=== PATIENT | female | born 1980 | race Caucasian/White ===

== ENCOUNTER 2019-05-10 19:45 | Inpatient (IN) | payer OTHER ==
[~2019-05-10] VITALS: Ht 157.5 cm; Wt 65.8 kg
--- NOTE | 2019-05-10 20:13 | NUR ---
PT. PRESENTS TO THE ER WITH 51/50 HOLD PLACED BY PD, PER FIRE & [facility], PT. WAS WALKING ON THE STREET COMPLETELY NAKED, PT. REFUSING TO ANSWER QUESTIONS, REFUSING TO GIVE NAME, WHEN ASKED, SHE STS, "I DONT KNOW." WHEN ASKED QUESTIONS, PT STS,"I DO NOT WANT TO ANSWER ANY QUESTIONS, I JUST WANT TO SLEEP." PT. CURRENTLY LAYING IN BED, SAD, INTERMITTENT CRYING, BELONGINGS REMOVED, COOPERATIVE, PT. PROVIDED A URINE SAMPLE, WALKED TO RESTROOM WITH STEADY GAIT, IN VIEW OF STAFF, SAFETY PRECAUTIONS IN PLACE, WILL CONTINUE TO MONITOR, DR. TRAMMELL AT BEDSIDE WITH MSE
[2019-05-10 21:01] LABS: BASOPHIL % 0.5 % (0-2); PLATELET COUNT 212 x10^3mcL (130-400); RED CELL DISTRIBUTION WIDTH 13.4 % (11.5-14.5)
[2019-05-10 21:02] LABS: CHLORIDE SERUM 102 mmol/L (98-107); CREATININE SERUM 0.7 mg/dL (0.6-1.0); GFR1 > 60 mL/min; GLUCOSE SERUM 96 mg/dL (74-106); POTASSIUM SERUM 3.3 mmol/L (3.5-5.1); SODIUM SERUM 136 mmol/L (136-145)
[2019-05-10 21:07] LABS: ALBUMIN 3.9 g/dL (3.4-5.0); ALKALINE PHOSPHATASE 65 U/L (46-116); ALT/SGPT 44 U/L (14-59); AST/SGOT 34 U/L (15-37); BILIRUBIN TOTAL 0.41 mg/dL (0.20-1.00); TOTAL PROTEIN, SERUM 7.4 g/dL (6.4-8.2)
--- NOTE | 2019-05-10 21:17 | NUR ---
PT. AMBULATED TO THE RESTROOM WITH STEADY GAIT, ACCOMPANIED BY RN
[2019-05-10 21:34] LABS: microscopic required? NO
--- NOTE | 2019-05-10 21:34 | NUR ---
PT NOTED WITH BUTTOCK EXPOSED, ATTEMPTED TO COVER PT WITH WARM BLANKET AND PT REFUSED. INFORMED PT SHE IS EXPOSED AND PT GAVE UNDERSATNDING AND COVERED SELF WITH GOWN.
[2019-05-10 21:45] LABS: urine erythrocyte NEGATIVE (NEGATIVE)
[2019-05-10 21:56] LABS: AMPHETAMINE QUAL UR NONE DETECTED (See below)
--- NOTE | 2019-05-10 22:15 | NUR ---
PT. VERBALLIZED NO ALLERGIES TO MEDICATION, ALLERGIES UPDATED
--- NOTE | 2019-05-10 22:21 | NUR ---
MEDICATED PT PER MD ORDER, PT TOLERATED WELL, SEE EMAR
--- NOTE | 2019-05-10 22:24 | NUR ---
PT. LAYING IN BED, AAOX4, CRYING, STS, "I AM SORRY." STOPPED CRYING, DENIES SI & SI, REPOSITIONED FOR COMFORT, INSTRUCTED TO VERBALIZE FEELINGS, PT. REFUSED, IN VIEW OF STAFF, OFFERED TOILETING, SNACKS & FLUIDS, WILL MONITOR, SAFETY PRECAUTIONS IN PLACE.
--- NOTE | 2019-05-10 23:05 | NUR ---
PT. STS SHE CAME FROM [facility] WHEN SHE RETURNED FROM [place], THEN DID NOT SPEAK ANYMORE AFTER THAT
--- NOTE | 2019-05-10 23:11 | NUR ---
DR. DIAZ AT BEDSIDE
--- NOTE | 2019-05-10 23:15 | NUR ---
PT. STS SHE HAS BEEN A MENTAL FACILITY BEFORE, PT. STS SHE USE TO USE METH, SHE LIVES WITH FATHER, STS SHE WANTED TO TAKE OFF HER CLOTHES AND WALK NAKED FOR NO REASON, PT. STS HER NAME IS CAITLYN COLÓN, DR. DIAZ MADE AWARE, ADMITTING MADE AWARE
--- NOTE | 2019-05-10 23:17 | NUR ---
PT. LAYING IN BED, AAOX4, CALM, COOPERATIVE, MOMENTS AT INTERMITTENT CRYING, CONTACTED FATHER GLADYS, FATHER STATES THEY GOT INTO AN ARGUMENT AND PT. THEN LEFT, DR. DIAZ MADE AWARE, SCRATCHES NOTED ON RIGHT ARM, BRUISE NOTED ON RIGHT HAND, PT. STS THE BRUISING IS FROM AN IV, AND SHE SCRATCHES HERSELF, IN VIEW OF STAFF, OFFERED TOILETING, FLUIDS, SNACKS, PT. DENIES SI & HI, SAFETY PRECAUTIONS IN PLACE, WILL MONITOR.
--- NOTE | 2019-05-10 23:25 | NUR ---
TELE PSYCH COMPUTER PLACED IN PT RM IN VIEW OF PT
--- NOTE | 2019-05-10 23:34 | NUR ---
PT. WITH TELE PSYCH AT BEDSIDE
--- NOTE | 2019-05-11 01:26 | NUR ---
PT. LAYING IN BED, SLEEPING, AROUSABLE TO TOUCH, CALM, COOOPERATIVE, DENIES SI & HI AT THIS TIME, OFFERED FLUIDS, SNACKS, TOILETING, IN VIEW OF STAFF, SAFETY PRECAUTIONS IN PLACE, VSS, WILL MONITOR
--- NOTE | 2019-05-11 03:15 | NUR ---
PT. LAYING IN BED, RESTING, AROUSABLE TO TOUCH, NO ACUTE DISTRESS NOTED, CALM, COOPERATIVE, OFFERED SNACKS, FLUIDS, & TOILETING, DENIES SI & HI, IN VIEW OF STAFF, SAFETY PRECAUTIONS IN PLACE, VSS, WILL MONITOR.
--- NOTE | 2019-05-11 03:21 | NUR ---
BREAKFAST TRAY ORDERED
--- NOTE | 2019-05-11 05:37 | NUR ---
PT. LAYING IN BED, SLEEPING, AROUSABLE TO TOUCH, NO ACUTE DISTRESS NOTED AT THIS TIME, VSS, WILL MONITOR.
--- NOTE | 2019-05-11 07:12 | NUR ---
REPORT GIVEN TO MCKAY BASURTO
--- NOTE | 2019-05-11 07:12 | NUR ---
RECIEVED REPORT FROM SHERINE CARDENAS FOR CONTINUED CARE OF PATIENT.
--- NOTE | 2019-05-11 07:17 | NUR ---
[facility] continuing to look for placement for this pt. No openings overnight per nightshift. Packet has been faxed/ is on file with the following facilities: [facility], [facility], [facility]
--- NOTE | 2019-05-11 07:29 | NUR ---
INTRODUCED SELF TO PATIET. PT SLEEPING AT THE OPPOSITE END OF THE GURNEY WHEN I APPROACHED. PT FRIENDLY AND COOPERATIVE. PT DENIES SI/HI. I OFFERED PATIENT BREAKFAST BUT SHE STS "IM NOT HUNGRY AT THIS TIME". LEFT TRAY IN ROOM. PT HAD NO OTHER NEEDS AT THIS TIME. WILL CONTINUE TO MONITOR.
--- NOTE | 2019-05-11 08:29 | NUR ---
PATIENT SLEEPING UPSIDE DOWN ON GURNEY- NO SS OF DISTRESS NOTED. WILL CONTINUE TO MONITOR.
--- NOTE | 2019-05-11 09:49 | NUR ---
FATHER CALLED CHECKING THE STATUS OF PATIENT. FATHER WAS ON THE EMERGENCY CALL LIST. ADVISED DAD I WOULD CALL HIM SOON I HAD DC INSTRUCTIONS. FATHER DOESN'T DRIVE AND WILL NEED TO FACILITATE SOMEONE TO BRING HIM HERE IF NEEDED.
--- NOTE | 2019-05-11 10:46 | NUR ---
LUNCH TRAY ORDERED FOR PATIENT. PATIENT SLEEPING ON GURNEY- BREATHING E/U, NO SS OF DISTRESS NOTED. WILL CONTINUE TO MONITOR.
--- NOTE | 2019-05-11 11:36 | NUR ---
PATIENT AWAKE, UP ON GURNEY- DENIES ANY DISCOMFORT. OFFERED TO TAKE TO BATHROOM, REFUSED. OFFERED SOMETHING TO EAT, REFUSED. WILL CONTINUE TO MONITOR.
--- NOTE | 2019-05-11 12:30 | NUR ---
PATIENT LYING ON GURNEY- IN A POSITION OF COMFORT. BREATHING E/U, WILL CONTINUE TO MONITOR./
--- NOTE | 2019-05-11 13:54 | NUR ---
OFFERED PATIENT LUNCH, PATIENT REFUSED. STATING "IM WORRIED ABOUT MY DAD, I WILL EAT WHEN I LEAVE HERE". I ADVISED THAT SHE MAY BE HERE A FEW DAYS AND PT STS "IM MY DADS CAREGIVER, HE WON'T EAT IF I'M NOT THERE". I CALLED FATHER "GLADYS" AND HE ADVISED ME THAT YES, DAUGHTER TAKES CARE OF HIM AND HE HAS NO WAY TO GET FOOD BECAUSE HE IS DISABLED. HE STS "I NEED MY DAUGHTER". I ADVISED CHARGE NURSE BERYL OF THE SITUATION AND BERYL CONTACTED CASE MANAGEMENT. CASE MANAGMENT HAD JOSEFA FROM [employer] CALL ME. JOSEFA STATED THAT SHE WOULD BE CALLING PD TO DO WELFARE CHECK ON FATHER.
--- NOTE | 2019-05-11 14:10 | NUR ---
RECEIVED PT FROM ED VIA [facility], PT IS AAOX4. DENIES HEADACHE/DIZZINESS. NO SOB NOTED, LUNG SOUNDS CTA. DENIES CHEST PAIN/PRESSURE. DENIES ABDOMINAL DISCOMFORT. BOWEL SOUNDS ACTIVE. LAST BM=2 DAYS AGO. ABDOMEN IS SOFT. VOIDS. PT STATED THAT 2 DAYS AGO, SHE WANTED TO HURT HERSELF BY BEING MEAN. DENIES SUICIDAL IDEATION AT THIS TIME. NO HALLUCINATIONS/DELUSIONS NOTED. CALM AND COOPERATIVE TO CARE. SIDE RAILS UPX2. CALL LIGHT ON REACH. SITTER AT BEDSIDE. ENDORSED TO PRIMARY NURSE UNIQUE FOR CONTINUITY OF CARE
[2019-05-11 14:17] VITALS: BP 144/93
[2019-05-11 14:21] VITALS: Ht 157.5 cm; Wt 65.8 kg
--- NOTE | 2019-05-11 17:45 | NUR ---
PT IN BED HAVING DINNER, AOX3, RESP E/U ON RA. CALM AND COOPERATIVE W/ CARE AT THIS TIME W/ NO THOUGHTS OF SELF HARM. PT W/ NO IV ACCESS, DR. GARCIA MADE AWARE. [address], SITTER AT BEDSIDE. WILL ENDORSE TO ONCOMING NURSE.
[2019-05-11] MEDS ORDERED: ZYP5 PO (18:05)
[2019-05-11 18:19] VITALS: BP 100/58
[2019-05-11 19:28] VITALS: BP 103/61
--- NOTE | 2019-05-11 20:10 | NUR ---
PT CURRENTLY RESTING IN BED, NO ACUTE DISTRESS. A/O X4. NO TELE, MED/SURG. DENIES CHEST PAIN. PULSES PALPABLE IN ALL EXTREMITIES, NO EDEMA NOTED. LUNG SOUNDS CTA BILATERALLY, DENIES SOB. BOWEL SOUNDS ACTIVE, LAST BM 05/09/19. VOIDING WELL. AMBULATORY. SKIN INTACT. DENIES SUICIDAL IDEATION AT THIS TIME. PT STATES SHE IS HERE BECAUSE SHE WAS BAD. BED IN LOWEST POSITION, SIDE RAILS UP X2, CALL LIGHT WITHIN REACH, SITTER AT BEDSIDE. WILL CONTINUE TO MONITOR.
--- NOTE | 2019-05-11 23:47 | NUR ---
PT CURRENTLY RESTING IN BED, NO ACUTE DISTRESS. WILL CONTINUE TO MONITOR.
--- NOTE | 2019-05-12 02:22 | NUR ---
Follow up calls were made to contracted [facility] facilities regarding bed placement, still no beds available at this time. [facility], spoke with Sofia. [facility], spoke with Laura. [facility], spokew esther Cadet. [facility], spoke with Yolande. [facility], spoke with Chichi. [facility], spoke with Jose. [facility], spoke with Maya.
[2019-05-12 04:40] VITALS: BP 110/62
--- NOTE | 2019-05-12 06:07 | NUR ---
PT SLEPT PERIODICALLY THROUGHOUT NIGHT, NO ACUTE DISTRESS. ALL NEEDS MET AND ATTENDED TO. NO SIGNIFICANT CHANGES. BED IN LOWEST POSITION, SIDE RAILS UP X2, CALL LIGHT WITHIN REACH, SITTER AT BEDSIDE. WILL ENDORSE CARE TO ONCOMING NURSE.
[2019-05-12 06:37] LABS: BASOPHIL % 0.8 % (0-2); PLATELET COUNT 251 x10^3mcL (130-400); RED CELL DISTRIBUTION WIDTH 13.4 % (11.5-14.5)
[2019-05-12 07:22] LABS: CALCIUM 8.5 mg/dL (8.5-10.1); CARBON DIOXIDE 27.5 mmol/L (21-32); CHLORIDE SERUM 105 mmol/L (98-107); CREATININE SERUM 0.8 mg/dL (0.6-1.0); GFR1 > 60 mL/min; GLUCOSE SERUM 97 mg/dL (74-106); MAGNESIUM 2.2 mg/dL (1.8-2.4); POTASSIUM SERUM 4.1 mmol/L (3.5-5.1); SODIUM SERUM 141 mmol/L (136-145)
--- NOTE | 2019-05-12 07:43 | NUR ---
PT SITTING IN BED A/A. ORIENTED X 3 TO PERSON, PLACE, TIME. PT DENIES SI/ OR THOUGHTS OF HARMING OTHERS AT THIS TIME. NO IV ACCESS. NO ACUTE PAIN/ DISTRESS. BED IN LOW POSITION, CALL LIGHT IN REACH, SAFETY PRECAUTIONS IN PLACE, SITTER AT BED SIDE. WILL CONTINUE TO MONITOR
[2019-05-12 07:45] VITALS: BP 100/68
--- NOTE | 2019-05-12 12:35 | NUR ---
PT LYING IN BED A/A. BREATHING EQUAL/ UNLABORED ON RA. NO ACUTE PAIN DISTRESS. NO IV ACCESS. DENIES SI/ THOUGHTS OF HARMING OTHERS AT THIS TIME. BED IN LOW POSITION, CALL LIGHT IN REACH, SAFETY PRECAUTIONS IN PLACE, SITTER AT BED SIDE. WILL CONTINUE TO MONITOR
--- NOTE | 2019-05-12 15:51 | NUR ---
PT LYING IN BED A/A. BREATHING EQUAL/ UNLABORED ON RA. NO ACUTE DISTRESS NOTED. NO IV ACCESS. BED IN LOW POSITION, CALL LIGHT IN REACH, SAFETY PRECAUTIONS IN PLACE, SITTER AT BED SIDE. WILL CONTINUE TO MONITOR
[2019-05-12 16:49] VITALS: BP 104/65
--- NOTE | 2019-05-12 18:32 | NUR ---
PT LYING IN BED A/A. BREATHING EQUAL/ UNLABORED ON RA. IVF RUNNING AT 80 ML/HR. NO REDNESS/SWELLING TO IV SITE. NO ACUTE PAIN/ DISTRESS AT THIS TIME. BANDAGE TO R. LABIA IS CDI. BED IN LOW POSITION, CALL LIGHT IN REACH, SAFETY PRECAUTIONS IN PLACE. WILL ENDORSE TO ON COMING NURSE
--- NOTE | 2019-05-12 18:38 | NUR ---
PT SITTING IN BED EATING. BREATHING EQUAL/ UNLABORED ON RA. NO ACUTE PAIN/ DISTRESS. DENIES SI/ THOUGHTS OF HURTING OTHERS AT THIS TIME. NO IV ACCESS. BED IN LOW POSITION, CALL LIGHT IN REACH, SAFETY PRECAUTIONS IN PLACE, AND SITTE AT BED SIDE. WILL ENDORSE TO ON COMING NURSE
--- NOTE | 2019-05-12 19:37 | NUR ---
PT CURRENTLY RESTING IN BED, NO ACUTE DISTRESS. A/O X4. NO TELE, MED/SURG. DENIES CHEST PAIN. PULSES PALPABLE IN ALL EXTREMITIES, NO EDEMA NOTED. LUNG SOUNDS CTA BILATERALLY, DENIES SOB. BOWEL SOUNDS ACTIVE, LAST BM 05/09/19. VOIDING WELL. AMBULATORY. SKIN INTACT. DENIES PAIN AT THIS TIME. DENIES SUICIDAL IDEATION AT THIS TIME. BED IN LOWEST POSITION, SIDE RAILS UP X2, CALL LIGHT WITHIN REACH. SITTER AT BEDSIDE. WILL CONTINUE TO MONITOR.
[2019-05-12 20:44] VITALS: BP 104/67
[2019-05-13 05:42] VITALS: BP 102/63
--- NOTE | 2019-05-13 05:59 | NUR ---
PT SLEPT PERIODICALLY THROUGHOUT NIGHT, NO ACUTE DISTRESS. ALL NEEDS MET AND ATTENDED TO. NO SIGNIFICANT CHANGES. NO IV ACCESS AT THIS TIME. MEDICATED PAIN PER EMAR. BED IN LOWEST POSITION, SIDE RAILS UP X2, CALL LIGHT WITHIN REACH. WILL ENDORSE CARE TO ONCOMING NURSE.
--- NOTE | 2019-05-13 07:16 | NUR ---
PT LYING IN BED EYES CLOSED. PT AROUSABLE TO VOICE. BREATHING EQUAL/ UNLABORED ON RA. NO ACUTE PAIN/ DISTRESS. NO IV ACCESS. BED IN LOW POSITION, CALL LIGHT IN REACH, SAFETY PRECAUTIONS IN PLACE, SITTER AT BED SIDE. WILL CONTINUE TO MONITOR
[2019-05-13 09:30] VITALS: BP 100/360
--- NOTE | 2019-05-13 12:51 | NUR ---
Still no beds available at the following facilities [facility] Jenny LUCIO
--- NOTE | 2019-05-13 13:10 | NUR ---
PT LYING IN BED A/A. BREATHING EQUAL/ UNLABORED ON RA. NO IV ACCESS. NO ACUTE PAIN/ DISTRESS. BED IN LOW POSITION, CALL LIGHT IN REACH, SAFETY PRECAUTIONS IN PLACE, SITTER AT BED SIDE. WILL CONTINUE TO MONITOR
--- NOTE | 2019-05-13 14:13 | NUR ---
RECEIVED CALL FROM [facility], THEY HAVE A BED AVAILABLE. DR. ENGLE NOTIFIED AND AGREED TO SEND PT TO [facility] AND RENEWED THE 5150 HOLD. WILL CONTACT REGARDING TRANSPORTATION
--- NOTE | 2019-05-13 14:33 | NUR ---
CALLED [facility] TO SET-UP A TRANSPORT, TRANSPORT TIME AT 1630H. PRIMARY NURSE KALANI MADE AWARE
--- NOTE | 2019-05-13 14:45 | NUR ---
[facility] AND GAVE REPORT TO SIMI BASURTO. PT WILL BE TRANSPORTED BY [facility] TO UNIT [address] WYATT, HE IS AWARE OF TRANSPORT. WILL CONTINUE TO MONITOR PT
--- NOTE | 2019-05-13 16:40 | NUR ---
PT DC'D TO [facility]. PT A/A, ORIENTED X 4. BREATHING EQUAL/ UNLABORED ON RA. NO ACUTE DISTRESS/ PAIN. DISCHARGE INSTRUCTIONS EXPLAINED, PT VERBALIZED UNDERSTANDING. PT BROUGHT DOWN TO LOBBY BY JOCY, ACCOMPANIED BY NATASHA. ALL QUESTIONS/ CONCERNS ADDRESSED. ALL BELONGINGS WITH PT
== END 2019-05-13 16:38 | DRG 753 ==
LOC: ED 19:45 → MU 05-11 12:49
PROVIDERS: Emergency Medicine; ADMIT Internal Medicine Pulmonary Disease
DX: F31.10 Bipolar disorder, current episode manic without psychotic features, unspecified (principal); E87.6 Hypokalemia
CPT/HCPCS: G0378; G0480

== ENCOUNTER 2020-01-11 06:25 | Emergency (ER) | payer OTHER ==
[~2020-01-11] VITALS: Ht 157.5 cm; Wt 65.8 kg
[~2020-01-11 06:25] MED LIST: ZYP5 PO
[2020-01-11 06:35] VITALS: Ht 157.5 cm; Wt 65.8 kg
[2020-01-11 08:43] VITALS: BP 116/76
== END 2020-01-11 13:57 | disposition home or self-care (01) ==
LOC: ED 06:25
DX: F10.120 Alcohol abuse with intoxication, uncomplicated (principal)
CPT/HCPCS: 36415; G0480; Q0092